=== PATIENT | female | born 1990 | race Hispanic/Latino ===

== ENCOUNTER 2022-11-18 09:30 | Outpatient (CLI) | payer OTHER | END 2022-11-18 09:31 | disposition home or self-care (01) | LOC: CSHULT 09:30 | PROVIDERS: ATTEND Family Medicine | DX: Z34.82 Encounter for supervision of other normal pregnancy, second trimester (principal); Z3A.26 26 weeks gestation of pregnancy | CPT/HCPCS: 76805 ==

== ENCOUNTER 2023-02-01 23:00 | Inpatient (IN) | payer OTHER ==
[2023-02-01 23:32] VITALS: BMI 28.3
[2023-02-02] MEDS ORDERED: hydrALAZINE 20 MG/ML VIAL SLOW IVP PRN ×3 (00:12→07:42)
[2023-02-02] MEDS: Lactated Ringer's 1,000 ML IV SCH ×2 (00:38→02:33)
[2023-02-02] MEDS ORDERED: Ondansetron PF 4 MG/2 ML Vial IVP PRN ×4 (00:43→07:42)
[2023-02-02] MEDS ORDERED: Promethazine HCl 25 MG/ML VIAL IM PRN ×3 (00:43→02:58)
[2023-02-02 01:19] LABS: Hemoglobin 13.8 g/dL (12.0-15.5); Mean Corpuscular Volume 88.3 fl (81.6-98.3); Mean Platelet Volume 10.5 fl (7.4-10.4); Platelet Count 251 10x3/uL (150-450); White Blood Cell (WBC) Count 7.5 10x3/uL (3.5-10.5)
[2023-02-02 01:27] LABS: ALT (SGPT) 14 U/L (8-55); AST (SGOT) 21 U/L (5-34); Albumin 3.5 g/dL (3.5-5.0); Alkaline Phosphatase 170 U/L (40-110); Anion Gap 15 mmol/L (10-20); BUN (Urea Nitrogen) 7 mg/dL (7.0-18.7); Bilirubin, Total 0.3 mg/dL (0.2-1.2); Calc. Creatinine Clearance 127 mL/min (70-130); Calcium 8.2 mg/dL (7.8-10.44); Carbon Dioxide 17 mmol/L (22-29); Chloride 110 mmol/L (98-107); Estimated GFR 120; Globulin 2.8 g/dL (2.4-3.5); Glucose 87 mg/dL (70-105); Potassium 4.3 mmol/L (3.5-5.1); Protein, Total 6.3 g/dL (6.0-8.3); Sodium 138 mmol/L (136-145)
[2023-02-02 01:36] LABS: Creatinine, Urine 123.56 mg/dL (47-110)
[2023-02-02] MEDS ORDERED: Fentanyl 100 MCG/2 ML VIAL SLOW IVP PRN (01:44)
[2023-02-02 01:45] LABS: HIV (1/2) Antibody/Antigen Non-Reactive (NonReactive); HIV 1/2 INDEX 0.11 S/CO (<1.00)
[2023-02-02 01:46] LABS: HBSAg Index 0.14 S/CO (0-0.99); Hep B Surf Ag - L&D Non-Reactive S/CO (NonReactive); Syphilis Antibody Nonreactive (Nonreactive); Syphilis Antibody Index 0.04 S/CO (<1.00 Non-Reactive)
[2023-02-02] MEDS ORDERED: fentaNYL 50 mcg/mL 1 mL Vial SLOW IVP PRN ×2 (02:00→02:19)
[2023-02-02] MEDS ORDERED: Carboprost 250 MCG/ML AMP IM PRN (02:15)
[2023-02-02] MEDS ORDERED: Docusate 100 MG CAP PO PRN (02:15)
[2023-02-02] MEDS ORDERED: Acetaminophen 500 MG TAB PO PRN (02:15)
[2023-02-02] MEDS ORDERED: Tranexamic Acid 1,000 MG/10 ML VIAL IVP PRN (02:15)
[2023-02-02] MEDS ORDERED: Misoprostol 200 MCG TAB PR PRN (02:15)
[2023-02-02] MEDS ORDERED: Fentanyl 2 mcg/Bup 0.1% Cadd 100 ML ONE (02:17)
[2023-02-02] MEDS ORDERED: Lidocaine 1% (PF) 30 ML VIAL SC PRN (02:18)
[2023-02-02] MEDS ORDERED: Penicillin G Potassium 5 MILL.UNITS in Sodium Chloride 0.9% 100 ML IVPB SCH (02:30)
[2023-02-02] MEDS ORDERED: Penicillin G Potassium 5 MILL.UNITS VIAL ONE (02:31)
[2023-02-02] MEDS ORDERED: ePHEDrine Sulfate 50 MG/10 ML VIAL SLOW IVP PRN (02:58)
[2023-02-02] MEDS ORDERED: Naloxone HCl 0.4 mg/ml Vial IVP PRN ×2 (02:58)
[2023-02-02] MEDS ORDERED: diphenhydrAMINE 50 MG/ML VIAL IVP PRN (02:58)
[2023-02-02] MEDS ORDERED: Acetaminophen 325 MG TAB PO PRN (02:58)
[2023-02-02] MEDS ORDERED: Lactated Ringer's 500 ML IV PRN (02:58)
[2023-02-02] MEDS ORDERED: Moisturizing Cream (Eucerin) 113 GM JAR TOP PRN (02:58)
[2023-02-02] MEDS ORDERED: Fentanyl 2 mcg/Bupivacaine 0.1% Cassette 100 ML EPIDURAL SCH (03:00)
[2023-02-02] MEDS ORDERED: Communication Order-Pharmacy FS SCH (03:00)
[2023-02-02] MEDS ORDERED: Lidocaine 1% (PF) 30 ML VIAL ONE (03:06)
[2023-02-02] MEDS: NS w/ Oxytocin 30 units 500 ML IV SCH ×2 (04:14→05:38)
[2023-02-02 04:48] LABS: pH (Cord, venous) 7.317 (7.250-7.350)
[2023-02-02] MEDS ORDERED: Penicillin G 2.5 MILL.units 2.5 MILL.UNITS in Premix Bag 1 BAG IVPB SCH (06:30)
[2023-02-02] MEDS ORDERED: Lanolin Ointment 7 GM TUBE TOP PRN (07:42)
[2023-02-02] MEDS ORDERED: HYDROcodone/Acetaminophen 5/325 mg Tablet PO PRN (07:42)
[2023-02-02] MEDS ORDERED: Bisacodyl 10 MG SUPP PR PRN (07:42)
[2023-02-02] MEDS ORDERED: diphenhydrAMINE 25 MG CAP PO PRN (07:42)
[2023-02-02] MEDS ORDERED: Boostrix 0.5 ML (Tdap) VIAL (>/=7 yrs of age) IM ONE (07:42)
[2023-02-02] MEDS ORDERED: Milk Of Magnesia 30 ML UDCUP PO PRN (07:42)
[2023-02-02] MEDS ORDERED: Bupivacaine/Epinephrine 0.25% 30 ML VIAL ONE (08:00)
[2023-02-02] MEDS: Ferrous Sulfate 325 MG TAB PO SCH ×2 (08:18→17:10)
[2023-02-02] MEDS: Docusate 100 MG CAP PO SCH ×2 (09:10→21:40)
[2023-02-02] MEDS: Prenatal Vitamin 1 TAB PO SCH (09:11)
[2023-02-02] MEDS: Ibuprofen 800 MG TAB PO SCH ×2 (13:42→21:40)
[2023-02-03] MEDS: Ibuprofen 800 MG TAB PO SCH ×2 (05:55→14:19)
[2023-02-03] MEDS: Ferrous Sulfate 325 MG TAB PO SCH (07:24)
[2023-02-03] MEDS: Prenatal Vitamin 1 TAB PO SCH (07:58)
[2023-02-03] MEDS: Docusate 100 MG CAP PO SCH (07:58)
[2023-02-03 09:13] VITALS: BP 128/89; TEMP 98.1
== END 2023-02-03 19:20 | disposition home or self-care (01) | DRG 807 ==
LOC: CSHLD/OP 23:00 → CSHLD 02-02 02:15 → CSHPP 02-02 08:00
PROVIDERS: ADMIT Family Medicine; ATTEND Family Medicine
PROC: 10E0XZZ Delivery of Products of Conception, External Approach (ICD-10-PCS; principal; 2023-02-02)
PROC: 10907ZC Drainage of Amniotic Fluid, Therapeutic from Products of Conception, Via Natural or Artificial Opening (ICD-10-PCS; 2023-02-02)
PROC: 4A133R1 Monitoring of Arterial Saturation, Peripheral, Percutaneous Approach (ICD-10-PCS; 2023-02-02)
DX: O24.420 Gestational diabetes mellitus in childbirth, diet controlled (principal); Z37.0 Single live birth; Z3A.38 38 weeks gestation of pregnancy; O76 Abnormality in fetal heart rate and rhythm complicating labor and delivery
CPT/HCPCS: 51702; 80053; 82570; 82805; 84156; 85027; 86780; 86850; 86900; 86901; 87340; 87389; 88307; 99285; J0360; J2540; J2590; J7120